=== PATIENT | female | born 1985 | race Caucasian/White ===

== ENCOUNTER 2016-09-18 19:34 | Emergency (ER) | payer OTHER ==
--- NOTE | 2016-09-18 20:48 | EDDOCDS ---
Physician Documentation [facility] Name: Shawna Wagner Age: 31 yrs Sex: Female : 1985 Arrival Date: 09/18/2016 Time: 19:34 Bed Triage 3 Private MD: Anjali [facility] Disposition: 09/18/16 20:30 Transfer ordered to Other. Diagnosis is Concussion - 28 wks ; fall; headache - transfer to L and D. - Reason for transfer: Higher level of care. - Accepting physician is dr palomino. - Condition is Stable. - Problem is new. - Symptoms are unchanged. Historical: - Allergies: no known allergies; - Home Meds: 1. 28 mg iron- 800 mcg Oral tab daily - PMHx: none; - PSHx: L elbow surgery; Tonsillectomy; Breast Reduction; ; - Social history: Smoking status: Patient states former smoker of tobacco. No barriers to communication noted, The patient speaks fluent Peruvian. - Family history: Not pertinent. - : The pt / caregiver states he / she is not on anticoagulants. Home medication list is obtained from the patient. - Exposure Risk Screening:: None identified. 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 4 in. (162.56 cm); 20:43 BP 111 / 55; Pulse 82; Resp 18; Temp 97.6(T); Pulse Ox 97% on R/A; Pain 0/10; ms18 19:36 Body Mass Index 29.18 (77.11 kg, 162.56 cm) elp MDM: 20:21 Heart Tones ordered. 20:42 Financial registration complete. [email or web address] 20:43 [facility] Payment Agreement was scanned into [employer] and attached to record. [email or web address] Signatures: Katya Gonzáles MD MD Shantel ConnollyRN RN rs3 Penelope Lombardo RN RN ms18 Irma Browning, Reg Reg [email or web address] The chart was reviewed and I authenticate all verbal orders and agree with the evaluation and treatment provided.Attachments: 20:43 [facility] Payment Agreement [email or web address] MTDD
--- NOTE | 2016-09-18 20:48 | EDDOCDS ---
Nurse's Notes [facility] Name: Shawna Wagner Age: 31 yrs Sex: Female : 1985 Arrival Date: 09/18/2016 Time: 19:34 Bed Triage 3 Private MD: Anjali [facility] Diagnosis: Concussion-28 wks ; fall; headache - transfer to L and D Presentation: 09/18 19:38 Presenting complaint: Patient states: fell and hit the back of the head. reports of rs3 headache, right eye feels fussy. Adult Sepsis Screening: The patient does not have new or worsening altered mentation. Patient's respiratory rate is less than 22. Systolic blood pressure is greater than 100. Patient has a qSOFA score of 0- Negative Sepsis Screen. Suicide/Homicide risk assessment- the patient denies having any suicidal and/or homicidal ideations and does not present with any other emotional, behavioral or mental health complaints. Status: The patient is a dependent. Transition of care: patient was not received from another setting of care. 19:38 Acuity: LUDIN Level 4 rs3 19:38 Method Of Arrival: Walkin/Carried/Asstd rs3 Triage Assessment: 19:40 General: Appears in no apparent distress. Pain: Location: forehead. HIV screening NA rs3 for this visit Offered previously. Musculoskeletal: Reports Pain is 5 out of 10 on a pain scale. 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 28 mg iron- 800 mcg Oral tab daily - PMHx: none; - PSHx: L elbow surgery; Tonsillectomy; Breast Reduction; ; - Social history: Smoking status: Patient states former smoker of tobacco. No barriers to communication noted, The patient speaks fluent Danish. - Family history: Not pertinent. - : The pt / caregiver states he / she is not on anticoagulants. Home medication list is obtained from the patient. - Exposure Risk Screening:: None identified. Screenin:29 Screening information is obtained from the patient. Fall risk: No risks identified. ms18 Assistance ADL's: requires no assistance with activities of daily living. Abuse/DV Screen: The patient / caregiver reports he/she is: not in a situation that causes fear, pain or injury. Nutritional screening: No deficits noted. Advance Directives: There is no living will. home support is adequate. Assessment: 20:29 General: Appears in no apparent distress, comfortable, Behavior is appropriate for age, ms18 cooperative, pleasant. General: Pt states that she has felt the baby move and FHT's were obtained and reported to the ED provider. Dr. Valero was called at this time. Pain: Denies pain. Neurological: Level of Consciousness is awake, alert, obeys commands, Oriented to person, place, time, Moves all extremities. Gait is steady, Speech is normal, Facial symmetry appears normal. Respiratory: No deficits noted. Derm: Skin is pink, warm & dry. Musculoskeletal: Range of motion intact in all extremities. 20:43 General: Pt in no acute distress. Dr. Mc asked to put the pt in as a discharge, Dr. anastacio Mc stated that she will leave the pt as a transfer. Report Manager notified of this. Pt leaving the ED now by WC to go to L&D. Vital Signs: 19:36 BP 137 / 59; Pulse 89; Resp 18; Temp 98.0; Pulse Ox 98% ; Weight 77.11 kg; Height 5 ft. elp 4 in. (162.56 cm); 20:43 BP 111 / 55; Pulse 82; Resp 18; Temp 97.6(T); Pulse Ox 97% on R/A; Pain 0/10; ms18 19:36 Body Mass Index 29.18 (77.11 kg, 162.56 cm) elp Vitals: 19:36 Log In Time: September 18, 2016 at 19:34. elp 20:28 Heart Tones 133BPM. ms18 ED Course: 19:35 Patient visited by Sandy Ballesteros PCA. elp 19:35 Patient moved to Waiting elp 19:36 DIANN Alba is Private Physician. elp 19:36 Patient visited by Sandy Ballesteros PCA. elp 19:36 Patient moved to Pre RCE elp 19:39 Triage Initiated rs3 19:56 Patient moved to Triage 3 ms18 20:15 Katya Gonzáles MD is Attending Physician. ml 20:15 Patient visited by Katya Gonzáles MD. ml 20:28 Patient visited by Penelope Lombardo,PAULA. ms18 20:29 The patient / caregiver is instructed regarding the plan of care and ED course. Patient ms18 has correct armband on for positive identification. Property sent home with patient. :Personal belongings accompany Pt. 20:29 No IV's were initiated during this patient's visit. No procedures done that require ms18 assistance. 20:43 [facility] Payment Agreement was scanned into [employer] and attached to record. [email or web address] Order Results: There are currently no results for this order. Outcome: 20:29 No special radiology studies were completed. ms18 20:30 ER care complete, transfer ordered by Provider. ml 20:42 Discharge Assessment: Patient awake, alert and oriented x 3. No cognitive and/or ms18 functional deficits noted. Patient verbalized understanding of disposition instructions. patient administered narcotics - no. The following High Risk Discharge criteria are identified: None. Discharged to Labor and Delivery. Condition: good Condition: stable. Discharge instructions given to patient, Instructed on discharge instructions, follow up and referral plans. Demonstrated understanding of instructions, Pt was receptive of discharge instructions/ teaching. Admission hand-off: Report called to L&D, spoke to Chiara. 20:46 Patient left the ED. ms18 Signatures: Katya Gonzáles MD MD Shantel Connolly,RN RN rs3 Sandy Ballesteros, SHOE CASER SHOE CASER elp Penelope Lombardo,PAULA RN ms18 NallelyIrma, Reg Reg ks16 MTDD
[2016-09-18] MEDS ORDERED: PRENTAB9 PO (22:40)
--- NOTE | 2016-09-20 21:47 | EDDOCDS ---
Physician Documentation [facility] Name: Shawna Wagner Age: 31 yrs Sex: Female : 1985 Arrival Date: 09/18/2016 Time: 19:34 Bed Triage 3 Private MD: DIANN Alba Disposition: 09/18/16 20:30 Transfer ordered to Other. Diagnosis is Concussion - 28 wks ; fall; headache - transfer to L and D. - Reason for transfer: Higher level of care. - Accepting physician is dr palomino. - Condition is Stable. - Problem is new. - Symptoms are unchanged. Historical: - Allergies: no known allergies; - Home Meds: 1. 28 mg iron- 800 mcg Oral tab daily - PMHx: none; - PSHx: L elbow surgery; Tonsillectomy; Breast Reduction; ; - Social history: Smoking status: Patient states former smoker of tobacco. No barriers to communication noted, The patient speaks fluent Singaporean. - Family history: Not pertinent. - : The pt / caregiver states he / she is not on anticoagulants. Home medication list is obtained from the patient. - Exposure Risk Screening:: None identified. 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 4 in. (162.56 cm); 20:43 BP 111 / 55; Pulse 82; Resp 18; Temp 97.6(T); Pulse Ox 97% on R/A; Pain 0/10; ms18 19:36 Body Mass Index 29.18 (77.11 kg, 162.56 cm) elp MDM: 20:21 Heart Tones ordered. 20:42 Financial registration complete. [facility] 20:43 [facility] Payment Agreement was scanned into [employer] and attached to record. 09/19 11:44 T-Sheet-- Draft Copy was scanned into [employer] and attached to record. gb Signatures: Katya Gonzáles MD MD ml Barnhardt, Gloria, Reg Reg Shantel WinnRN RN rs3 Penelope Lombardo RN RN ms18 Irma Browning, Reg Reg ks16 The chart was reviewed and I authenticate all verbal orders and agree with the evaluation and treatment provided.Attachments: 09/18 20:43 [facility] Payment Agreement [email or web address] 09/19 11:44 T-Sheet-- Draft Copy gb Chart Complete MTDD
--- NOTE | 2016-09-20 21:47 | EDDOCDS ---
Nurse's Notes [facility] Name: Shawna Wagner Age: 31 yrs Sex: Female : 1985 Arrival Date: 09/18/2016 Time: 19:34 Bed Triage 3 Private MD: Anjali [facility] Diagnosis: Concussion-28 wks ; fall; headache - transfer to L and D Presentation: 09/18 19:38 Presenting complaint: Patient states: fell and hit the back of the head. reports of rs3 headache, right eye feels fussy. Adult Sepsis Screening: The patient does not have new or worsening altered mentation. Patient's respiratory rate is less than 22. Systolic blood pressure is greater than 100. Patient has a qSOFA score of 0- Negative Sepsis Screen. Suicide/Homicide risk assessment- the patient denies having any suicidal and/or homicidal ideations and does not present with any other emotional, behavioral or mental health complaints. Status: The patient is a dependent. Transition of care: patient was not received from another setting of care. 19:38 Acuity: LUDIN Level 4 rs3 19:38 Method Of Arrival: Walkin/Carried/Asstd rs3 Triage Assessment: 19:40 General: Appears in no apparent distress. Pain: Location: forehead. HIV screening NA rs3 for this visit Offered previously. Musculoskeletal: Reports Pain is 5 out of 10 on a pain scale. 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 28 mg iron- 800 mcg Oral tab daily - PMHx: none; - PSHx: L elbow surgery; Tonsillectomy; Breast Reduction; ; - Social history: Smoking status: Patient states former smoker of tobacco. No barriers to communication noted, The patient speaks fluent Mohawk. - Family history: Not pertinent. - : The pt / caregiver states he / she is not on anticoagulants. Home medication list is obtained from the patient. - Exposure Risk Screening:: None identified. Screenin:29 Screening information is obtained from the patient. Fall risk: No risks identified. ms18 Assistance ADL's: requires no assistance with activities of daily living. Abuse/DV Screen: The patient / caregiver reports he/she is: not in a situation that causes fear, pain or injury. Nutritional screening: No deficits noted. Advance Directives: There is no living will. home support is adequate. Assessment: 20:29 General: Appears in no apparent distress, comfortable, Behavior is appropriate for age, ms18 cooperative, pleasant. General: Pt states that she has felt the baby move and FHT's were obtained and reported to the ED provider. Dr. Valero was called at this time. Pain: Denies pain. Neurological: Level of Consciousness is awake, alert, obeys commands, Oriented to person, place, time, Moves all extremities. Gait is steady, Speech is normal, Facial symmetry appears normal. Respiratory: No deficits noted. Derm: Skin is pink, warm & dry. Musculoskeletal: Range of motion intact in all extremities. 20:43 General: Pt in no acute distress. Dr. Mc asked to put the pt in as a discharge, Dr. anastacio Mc stated that she will leave the pt as a transfer. Putty Worker notified of this. Pt leaving the ED now by WC to go to L&D. Vital Signs: 19:36 BP 137 / 59; Pulse 89; Resp 18; Temp 98.0; Pulse Ox 98% ; Weight 77.11 kg; Height 5 ft. elp 4 in. (162.56 cm); 20:43 BP 111 / 55; Pulse 82; Resp 18; Temp 97.6(T); Pulse Ox 97% on R/A; Pain 0/10; ms18 19:36 Body Mass Index 29.18 (77.11 kg, 162.56 cm) elp Vitals: 19:36 Log In Time: September 18, 2016 at 19:34. elp 20:28 Heart Tones 133BPM. ms18 ED Course: 19:35 Patient visited by Sandy Ballesteros PCA. elp 19:35 Patient moved to Waiting elp 19:36 DIANN Alba is Private Physician. elp 19:36 Patient visited by Sandy Ballesteros PCA. elp 19:36 Patient moved to Pre RCE elp 19:39 Triage Initiated rs3 19:56 Patient moved to Triage 3 ms18 20:15 Katya Gonzáles MD is Attending Physician. ml 20:15 Patient visited by Katya Gonzáles MD. ml 20:28 Patient visited by Penelope Lombardo,PAULA. ms18 20:29 The patient / caregiver is instructed regarding the plan of care and ED course. Patient ms18 has correct armband on for positive identification. Property sent home with patient. :Personal belongings accompany Pt. 20:29 No IV's were initiated during this patient's visit. No procedures done that require ms18 assistance. 20:43 [facility] Payment Agreement was scanned into [employer] and attached to record. [email or web address] 22:09 Patient name changed from Shawna\S\\S\Kristy\S\ to Shawna\S\ \S\Kristy. EDMS 09/19 11:44 T-Sheet-- Draft Copy was scanned into [employer] and attached to record. gb Order Results: There are currently no results for this order. Outcome: 09/18 20:29 No special radiology studies were completed. ms18 20:30 ER care complete, transfer ordered by Provider. 20:42 Discharge Assessment: Patient awake, alert and oriented x 3. No cognitive and/or ms18 functional deficits noted. Patient verbalized understanding of disposition instructions. patient administered narcotics - no. The following High Risk Discharge criteria are identified: None. Discharged to Labor and Delivery. Condition: good Condition: stable. Discharge instructions given to patient, Instructed on discharge instructions, follow up and referral plans. Demonstrated understanding of instructions, Pt was receptive of discharge instructions/ teaching. Admission hand-off: Report called to L&D, spoke to Chiara. 20:46 Patient left the ED. ms18 Signatures: Dis[facility] EDLA Katya Gonzáles MD MD Alejandra Jones, Reg Reg gb Shantel Connolly,RN RN rs3 Sandy Ballesteros, PACKAGING MACHINE OPERATOR PACKAGING MACHINE OPERATOR elp Penelope Lombardo,RN RN ms18 Irma Browning, Reg Reg ks16 Chart Complete MTDD
--- NOTE | 2016-09-20 21:47 | EDDOCDS ---
Physician Documentation [facility] Name: Shawna Wagner Age: 31 yrs Sex: Female : 1985 Arrival Date: 09/18/2016 Time: 19:34 Bed Triage 3 Private MD: DIANN Alba Disposition: 09/18/16 20:30 Transfer ordered to Other. Diagnosis is Concussion - 28 wks ; fall; headache - transfer to L and D. - Reason for transfer: Higher level of care. - Accepting physician is dr palomino. - Condition is Stable. - Problem is new. - Symptoms are unchanged. Historical: - Allergies: no known allergies; - Home Meds: 1. 28 mg iron- 800 mcg Oral tab daily - PMHx: none; - PSHx: L elbow surgery; Tonsillectomy; Breast Reduction; ; - Social history: Smoking status: Patient states former smoker of tobacco. No barriers to communication noted, The patient speaks fluent Egyptian. - Family history: Not pertinent. - : The pt / caregiver states he / she is not on anticoagulants. Home medication list is obtained from the patient. - Exposure Risk Screening:: None identified. 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 4 in. (162.56 cm); 20:43 BP 111 / 55; Pulse 82; Resp 18; Temp 97.6(T); Pulse Ox 97% on R/A; Pain 0/10; ms18 19:36 Body Mass Index 29.18 (77.11 kg, 162.56 cm) elp MDM: 20:21 Heart Tones ordered. 20:42 Financial registration complete. [facility] 20:43 [facility] Payment Agreement was scanned into [employer] and attached to record. 09/19 11:44 T-Sheet-- Draft Copy was scanned into [employer] and attached to record. gb Signatures: Katya Gonzáles MD MD ml Barnhardt, Gloria, Reg Reg Shantel WinnRN RN rs3 Penelope Lombardo RN RN ms18 Irma Browning, Reg Reg ks16 The chart was reviewed and I authenticate all verbal orders and agree with the evaluation and treatment provided.Attachments: 09/18 20:43 [facility] Payment Agreement [email or web address] 09/19 11:44 T-Sheet-- Draft Copy gb Chart Complete MTDD
== END 2016-09-18 20:46 | disposition admitted as inpatient to this hospital (09) ==
LOC: M ED 19:34
DX: O9A.212 Injury, poisoning and certain other consequences of external causes complicating pregnancy, second trimester (principal); R51 Headache; W00.0XXA Fall on same level due to ice and snow, initial encounter; Y92.89 Other specified places as the place of occurrence of the external cause; Y93.89 Activity, other specified; Y99.8 Other external cause status; Z3A.28 28 weeks gestation of pregnancy

== ENCOUNTER 2016-09-18 20:55 | Outpatient (CLI) | payer OTHER ==
[~2016-09-18] VITALS: Ht 162.6 cm; Wt 78.0 kg
[2016-09-18 21:12] VITALS: BP 115/55
[2016-09-18] MEDS ORDERED: PRENTAB9 PO (22:40)
--- NOTE | 2016-09-19 00:48 | IPNPDOC ---
Text Note Date of Service The patient was seen on 09/19/16 at 00:39. NOTE Subjective: Shawna Wagner is a 31yo with a SIUP at approx. 28wk gestation who presents to triage s/p fall. She states she was walking her puppy outside to the mailbox and she fell backwards on ice and hit her head. She never hit her belly. She never lost consciousness. No bleeding of the head. She states she soon developed a headache and treated it with 650mg PO Tylenol. She was seen by the ER prior to coming up to L&D where they cleared her from a neurologic stand point. I spoke with the ER physician who said no head CT warranted, neurological exam normal, patient safe to be evaluated on L&D. ROS Admits: gross movement Denies: Vaginal bleeding/ loss of fluid, abdominal pain, bruising Objective: Vitals wnl NST: reassuring for gestational age [place]: no CTXs or uterine irritability Physical: Gen: well-developed and well-nourished in NAD. Mental: A&Ox3, conversant, not sleepy HEENT: palpation of the scalp reveals no lacerations or areas of induration, just slight tenderness in the center of the occiput Abdomen: Soft NT/ND without rebound or guarding Extremity: no edema in LE bilat. Assessment: Shawna Wagner is a 31yo with a SIUP at approx. 28wk gestation with no evidence of abruption. Reassuring NST without CTXs or uterine irritability. Vitals stable with benign physical exam. Cleared from neurologic standpoint by ER. Plan: -Tylenol 1000 mg q8hr for pain -has routine OB visit scheduled in 2 days, patient encouraged to keep appointment -Return precautions given for bleeding, fluid loss, contractions, decreased movement, and abdominal pain. Also, altered mental status, syncope, or anything else that concerns her Dr. MD Lebron Miramontes, OBGYN VS,Odalis, I+O VS, Odalis, I+O Vital Signs Date Time Temp Pulse Resp B/P Pulse Ox O2 Delivery O2 Flow Rate FiO2 09/18/16 21:12 97.8 77 18 115/55 SAL FARRELL MD Sep 19, 2016 00:48
== END 2016-09-18 21:46 | disposition home or self-care (01) ==
LOC: M LDO 20:55
PROVIDERS: ATTEND Obstetrics & Gynecology
DX: O26.893 Other specified pregnancy related conditions, third trimester (principal); R51 Headache; Z3A.28 28 weeks gestation of pregnancy

== ENCOUNTER 2016-11-25 03:56 | Inpatient (IN) | payer OTHER ==
[~2016-11-25] VITALS: Ht 162.6 cm; Wt 82.0 kg
[2016-11-25] VITALS (36 sets, daily range): BP systolic 95–147; BP diastolic 50–73
[~2016-11-25 03:56] MED LIST: PRENTAB9 PO
[2016-11-25] MEDS ORDERED: LACTATED RINGER'S 1000 ML IV STA (04:22)
[2016-11-25] MEDS ORDERED: FENTANYL 2MCG/ML ROPIVACAINE 0.2% IN 0.9% NACL 200ML IVBAG As Ordered ONE (04:36)
[2016-11-25] MEDS ORDERED: FENTANYL/ROPIVACAINE/NACL BAG 200 ML EPIDURAL SCH (04:38)
[2016-11-25] MEDS ORDERED: ePHEDrine SULFATE 25 MG/5 ML(5MG/ML) SYRINGE IV PRN (04:38)
[2016-11-25] MEDS ORDERED: NALOXONE INJ 0.4 MG/1 ML VIAL (J2310) IV PRN (04:38)
[2016-11-25] MEDS ORDERED: ONDANSETRON 4MG/2ML VIAL (J2405) IV PRN ×2 (04:38→21:30)
[2016-11-25] MEDS ORDERED: REFRIGERATOR IV KEYS XX PRN (04:38)
[2016-11-25] MEDS ORDERED: diphenhydrAMINE INJ 50MG/ML VIAL (J1200) IV PRN (04:38)
[2016-11-25] MEDS ORDERED: LACTATED RINGER'S 1000 ML IV PRN (04:38)
[2016-11-25] MEDS ORDERED: EPIDURAL COMMENT XX SCH (04:38)
[2016-11-25] MEDS ORDERED: EPIDURAL/PCA KEYS XX PRN (04:38)
[2016-11-25] MEDS ORDERED: OXYTOCIN 30 UNITS IN 0.9% NaCl 500ML IV BAG (J2590) As Ordered ONE (18:51)
[2016-11-25] MEDS: OXYTOCIN DRIP 30 UNITS in APPROPRIATE DILUENT 1 EA IV SCH (18:57)
[2016-11-25] MEDS ORDERED: RHOGAM 300 MCG (1500 IU) INJ (J2790) IM SCH (21:30)
[2016-11-25] MEDS ORDERED: ANUSOL HC CREAM 30GM TOP PRN (21:30)
[2016-11-25] MEDS ORDERED: DIBUCAINE 1% OINTMENT 30GM TOP PRN (21:30)
[2016-11-25] MEDS ORDERED: PROMETHAZINE 25 MG TAB PO PRN (21:30)
[2016-11-25] MEDS ORDERED: MEASLES,MUMPS,RUBELLA VACCINE INJ (MMR-II) (90707) SC SCH (21:30)
[2016-11-25] MEDS ORDERED: METHYLERGONOVINE MALEATE 0.2 MG TAB PO PRN (21:30)
[2016-11-25] MEDS ORDERED: DOCUSATE SODIUM 100 MG CAP PO PRN (21:30)
[2016-11-25] MEDS: ACETAMINOPHEN 500 MG TAB PO PRN (22:12)
[2016-11-25] MEDS ORDERED: MORPHINE 2 MG/ML 1ML SYRINGE IV ONE ×2 (22:45→23:15)
[2016-11-25] MEDS: IBUPROFEN 800 MG TAB PO PRN (23:00)
[2016-11-25] MEDS ORDERED: KETOROLAC 30 MG/ML VIAL (J1885) IV ONE (23:15)
[2016-11-25] MEDS: LIDOCAINE 2% JELLY 30 ML TOP SCH (23:31)
[2016-11-26] MEDS: LIDOCAINE 2% JELLY 30 ML TOP SCH (00:46)
[2016-11-26] MEDS: OXYTOCIN DRIP 30 UNITS in APPROPRIATE DILUENT 1 EA IV SCH (00:59)
[2016-11-26] MEDS: oxyCODONE 5MG TAB PO PRN ×2 (01:41→08:02)
[2016-11-26] MEDS: MORPHINE 2 MG/ML 1ML SYRINGE IV PRN ×2 (02:30→04:44)
[2016-11-26 03:30] VITALS: BP 105/49
[2016-11-26] MEDS: PRENATAL VITAMIN TAB PO SCH (09:00)
[2016-11-26] MEDS ORDERED: MIRALAX *UNIT DOSE* 17GM PACKET PO SCH (09:00)
[2016-11-26] MEDS: IBUPROFEN 800 MG TAB PO PRN (10:06)
[2016-11-26] MEDS: ACETAMINOPHEN 500 MG TAB PO PRN (12:19)
[2016-11-26] MEDS: PERCOCET 5MG/325MG TAB PO PRN (15:37)
[2016-11-26 18:12] VITALS: BP 107/53
[2016-11-26] MEDS: DOCUSATE SODIUM 100 MG CAP PO SCH (21:40)
[2016-11-27] MEDS: PERCOCET 5MG/325MG TAB PO PRN ×2 (04:42→18:31)
[2016-11-27 05:29] VITALS: BP 115/57
[2016-11-27] MEDS: DOCUSATE SODIUM 100 MG CAP PO SCH ×2 (08:04→20:05)
[2016-11-27] MEDS: PRENATAL VITAMIN TAB PO SCH (08:04)
[2016-11-27 18:00] VITALS: BP 121/62
[2016-11-27] MEDS: IBUPROFEN 800 MG TAB PO PRN (18:32)
[2016-11-28] MEDS: IBUPROFEN 800 MG TAB PO PRN (03:10)
[2016-11-28 05:33] VITALS: BP 110/55
[2016-11-28] MEDS: PRENATAL VITAMIN TAB PO SCH (09:12)
[2016-11-28] MEDS: DOCUSATE SODIUM 100 MG CAP PO SCH (09:12)
[2016-11-28] MEDS ORDERED: DIBU1OIN TOP (09:46)
[2016-11-28] MEDS ORDERED: ACET50TA PO (09:46)
[2016-11-28] MEDS ORDERED: IBUP-1114 PO (09:46)
== END 2016-11-28 11:45 | disposition home or self-care (01) | DRG 775 ==
LOC: M LDO 03:56 → M LDI 04:17 → M OBS 11-26 03:15
PROVIDERS: ADMIT Obstetrics & Gynecology; ATTEND Obstetrics & Gynecology
PROC: 10E0XZZ Delivery of Products of Conception, External Approach (ICD-10-PCS; principal; 2016-11-25)
PROC: 0KQM0ZZ Repair Perineum Muscle, Open Approach (ICD-10-PCS; 2016-11-25)
DX: O69.82X0 Labor and delivery complicated by other cord entanglement, without compression, not applicable or unspecified (principal); O71.7 Obstetric hematoma of pelvis; Z37.0 Single live birth; Z3A.39 39 weeks gestation of pregnancy; O70.1 Second degree perineal laceration during delivery

== ENCOUNTER 2016-12-02 14:39 | Inpatient (IN) | payer OTHER ==
[~2016-12-02] VITALS: Ht 162.6 cm; Wt 73.9 kg
[~2016-12-02 14:39] MED LIST changes: +ACET50TA PO; +DIBU1OIN TOP; +IBUP-1114 PO
[2016-12-02] MEDS ORDERED: ONDANSETRON 4MG/2ML VIAL (J2405) IV PRN ×2 (15:00→21:30)
[2016-12-02] MEDS ORDERED: MORPHINE 2 MG/ML 1ML SYRINGE IV PRN (15:00)
[2016-12-02] MEDS ORDERED: ACETAMINOPHEN 500 MG TAB PO PRN (15:00)
[2016-12-02] MEDS ORDERED: LR 500 ML IV SCH (15:00)
[2016-12-02 15:20] VITALS: BP 110/67
[2016-12-02] MEDS ORDERED: IRON65TA PO (15:32)
[2016-12-02] MEDS ORDERED: COLA100C3 PO (15:32)
[2016-12-02 15:39] LABS: BASO % 0.3 % (0.0-1.0); EOS # 0.4 K/mm3 (0.0-0.50); EOS % 3.6 % (0.0-3.0); LARGE UNSTAINED CELL # 0.3 K/mm3 (0.0-0.4); LARGE UNSTAINED CELL % 2.2 % (0.0-4.0); LYMPH # 2.1 K/mm3 (1.5-4.5); LYMPH % 17.1 % (24.0-44.0); MEAN CORPUSCULAR HEMOGLOBIN 31.3 pg (27.0-33.0); MEAN CORPUSCULAR HGB CONC 32.9 g/dl (32.0-36.5); MEAN CORPUSCULAR VOLUME 95.2 fl (80.0-96.0); MONO # 0.6 K/mm3 (0.0-0.8); MONO % 4.9 % (0.0-5.0); PLATELET COUNT, AUTOMATED 488 k/mm3 (150-450); RED CELL DISTRIBUTION WIDTH 14.1 % (11.5-14.5); WHITE BLOOD COUNT 12.4 K/mm3 (4.0-10.0)
[2016-12-02] MEDS ORDERED: MIDAZOLAM INJ 2 MG/2 ML VIAL (J2250) As Ordered ONE (19:08)
[2016-12-02] MEDS ORDERED: fentaNYL 100 MCG/2 ML INJECTION (J3010) As Ordered ONE (19:09)
[2016-12-02 19:40] VITALS: BP 115/58
[2016-12-02] MEDS ORDERED: PROPOFOL 200 MG/20 ML VIAL As Ordered ONE (20:06)
[2016-12-02] MEDS ORDERED: LIDOCAINE 2% INJ 100 MG/5 ML SDV (FOR ANES.) As Ordered ONE (20:06)
[2016-12-02] MEDS ORDERED: ONDANSETRON 4MG/2ML VIAL (J2405) As Ordered ONE (20:07)
[2016-12-02] MEDS ORDERED: ceFAZolin 2 GM/D5W 50 ML IV BAG (J0690) As Ordered ONE (20:14)
[2016-12-02] MEDS ORDERED: PHENYLephrine HCL 500 MCG/5 ML (100MCG/ML) SYRINGE (J2370) As Ordered ONE (20:31)
[2016-12-02] MEDS ORDERED: ePHEDrine SULFATE 25 MG/5 ML(5MG/ML) SYRINGE As Ordered ONE (20:34)
[2016-12-02] MEDS ORDERED: ESTROGENS VAGINAL CREAM 30GM As Ordered ONE (20:39)
[2016-12-02] MEDS ORDERED: PERCOCET 5MG/325MG TAB As Ordered ONE ×2 (21:22→21:47)
[2016-12-02] MEDS: PERCOCET 5MG/325MG TAB PO PRN ×2 (21:25→21:45)
[2016-12-02] MEDS ORDERED: HYDROmorphone HCL 1 MG/ML SYRINGE (J1170) IV PRN (21:30)
[2016-12-02] MEDS ORDERED: fentaNYL 100 MCG/2 ML INJECTION (J3010) IV PRN (21:30)
[2016-12-02] MEDS ORDERED: LR 1,000 ML IV SCH (21:45)
[2016-12-02 22:15] VITALS: BP 131/65
[2016-12-02 22:45] VITALS: BP 128/74
[2016-12-02 23:15] VITALS: BP 132/73
[2016-12-02] MEDS: LR 1,000 ML IV SCH (23:44)
[2016-12-02] MEDS: DOCUSATE SODIUM 100 MG CAP PO SCH (23:45)
[2016-12-02] MEDS: ACETAMINOPHEN 500 MG TAB PO SCH (23:46)
[2016-12-03] VITALS (8 sets, daily range): BP systolic 102–136; BP diastolic 57–81
[2016-12-03] MEDS: ACETAMINOPHEN 500 MG TAB PO SCH (06:31)
[2016-12-03] MEDS: LR 1,000 ML IV SCH ×2 (06:32→09:35)
[2016-12-03 06:54] LABS: BASO % 0.2 % (0.0-1.0); EOS # 0.4 K/mm3 (0.0-0.50); EOS % 3.3 % (0.0-3.0); LARGE UNSTAINED CELL # 0.2 K/mm3 (0.0-0.4); LARGE UNSTAINED CELL % 1.6 % (0.0-4.0); LYMPH # 1.7 K/mm3 (1.5-4.5); LYMPH % 13.4 % (24.0-44.0); MEAN CORPUSCULAR HEMOGLOBIN 31.1 pg (27.0-33.0); MEAN CORPUSCULAR HGB CONC 32.7 g/dl (32.0-36.5); MONO # 0.7 K/mm3 (0.0-0.8); MONO % 6.4 % (0.0-5.0); NEUTROPHILS # 8.6 K/mm3 (1.8-7.7); NEUTROPHILS % 75.1 % (36.0-66.0); PLATELET COUNT, AUTOMATED 425 k/mm3 (150-450); RED CELL DISTRIBUTION WIDTH 14.4 % (11.5-14.5); WHITE BLOOD COUNT 11.5 K/mm3 (4.0-10.0)
[2016-12-03] MEDS ORDERED: PERCOCET 5MG/325MG TAB PO PRN (08:15)
[2016-12-03] MEDS: DOCUSATE SODIUM 100 MG CAP PO SCH ×2 (08:35→20:32)
[2016-12-03] MEDS: MIRALAX *UNIT DOSE* 17GM PACKET PO SCH (08:35)
[2016-12-03] MEDS: IBUPROFEN 800 MG TAB PO SCH ×3 (08:36→23:16)
[2016-12-03 22:43] LABS: MEAN CORPUSCULAR HEMOGLOBIN 31.2 pg (27.0-33.0); MEAN CORPUSCULAR HGB CONC 32.9 g/dl (32.0-36.5); MEAN CORPUSCULAR VOLUME 94.8 fl (80.0-96.0); WHITE BLOOD COUNT 11.3 K/mm3 (4.0-10.0)
[2016-12-03] MEDS: AMPICILLIN SOD/SULBACTAM SOD 3 GM in D5W MINI-BAG PLUS 100 ML IV SCH (23:14)
[2016-12-03 23:24] LABS: INR 0.93
[2016-12-03] MEDS ORDERED: NS 1,000 ML IV SCH (23:45)
[2016-12-04] VITALS (12 sets, daily range): BP systolic 106–135; BP diastolic 55–75
[2016-12-04] MEDS: AMPICILLIN SOD/SULBACTAM SOD 3 GM in D5W MINI-BAG PLUS 100 ML IV SCH ×4 (04:32→22:48)
[2016-12-04] MEDS ORDERED: ACETAMINOPHEN 500 MG TAB PO SCH (06:00)
[2016-12-04 06:01] LABS: BASO % 0.3 % (0.0-1.0); EOS # 0.4 K/mm3 (0.0-0.50); EOS % 4.3 % (0.0-3.0); LARGE UNSTAINED CELL # 0.2 K/mm3 (0.0-0.4); LARGE UNSTAINED CELL % 2.3 % (0.0-4.0); LYMPH # 2.3 K/mm3 (1.5-4.5); MEAN CORPUSCULAR VOLUME 94.1 fl (80.0-96.0); MONO # 0.6 K/mm3 (0.0-0.8); MONO % 5.9 % (0.0-5.0); NEUTROPHILS # 6.4 K/mm3 (1.8-7.7); NEUTROPHILS % 66.2 % (36.0-66.0); PLATELET COUNT, AUTOMATED 446 k/mm3 (150-450); RED CELL DISTRIBUTION WIDTH 13.9 % (11.5-14.5); WHITE BLOOD COUNT 9.7 K/mm3 (4.0-10.0)
[2016-12-04] MEDS: IBUPROFEN 800 MG TAB PO SCH ×3 (06:15→21:49)
[2016-12-04] MEDS ORDERED: ceFAZolin 2 GM/D5W 50 ML IV BAG (J0690) As Ordered ONE (08:04)
[2016-12-04] MEDS ORDERED: dexameTHASONE 4 MG/ML 1ML VIAL (J1100) As Ordered ONE (08:12)
[2016-12-04] MEDS ORDERED: LIDOCAINE 2% INJ 100 MG/5 ML SDV (FOR ANES.) As Ordered ONE (08:14)
[2016-12-04] MEDS ORDERED: fentaNYL 100 MCG/2 ML INJECTION (J3010) As Ordered ONE (08:14)
[2016-12-04] MEDS ORDERED: MIDAZOLAM INJ 2 MG/2 ML VIAL (J2250) As Ordered ONE (08:14)
[2016-12-04] MEDS ORDERED: PROPOFOL 200 MG/20 ML VIAL As Ordered ONE (08:14)
[2016-12-04] MEDS ORDERED: ESTROGENS VAGINAL CREAM 30GM As Ordered ONE (08:29)
[2016-12-04] MEDS ORDERED: fentaNYL 100 MCG/2 ML INJECTION (J3010) IV PRN (09:45)
[2016-12-04] MEDS ORDERED: LR 1,000 ML IV SCH (09:45)
[2016-12-04] MEDS ORDERED: PERCOCET 5MG/325MG TAB PO PRN (09:45)
[2016-12-04] MEDS: MIRALAX *UNIT DOSE* 17GM PACKET PO SCH (13:41)
[2016-12-04] MEDS: DOCUSATE SODIUM 100 MG CAP PO SCH ×2 (13:43→21:49)
[2016-12-05] VITALS: BP 105/56
[2016-12-05 04:00] VITALS: BP 106/58
[2016-12-05] MEDS: AMPICILLIN SOD/SULBACTAM SOD 3 GM in D5W MINI-BAG PLUS 100 ML IV SCH (04:05)
[2016-12-05] MEDS: IBUPROFEN 800 MG TAB PO SCH ×3 (05:49→20:48)
[2016-12-05 07:48] LABS: BASO % 0.2 % (0.0-1.0); EOS # 0.4 K/mm3 (0.0-0.50); EOS % 3.4 % (0.0-3.0); LARGE UNSTAINED CELL # 0.4 K/mm3 (0.0-0.4); LYMPH # 3.1 K/mm3 (1.5-4.5); LYMPH % 26.5 % (24.0-44.0); MEAN CORPUSCULAR HGB CONC 31.8 g/dl (32.0-36.5); MEAN CORPUSCULAR VOLUME 94.6 fl (80.0-96.0); MONO # 0.6 K/mm3 (0.0-0.8); MONO % 5.1 % (0.0-5.0); NEUTROPHILS # 7.2 K/mm3 (1.8-7.7); NEUTROPHILS % 61.8 % (36.0-66.0); PLATELET COUNT, AUTOMATED 480 k/mm3 (150-450); RED CELL DISTRIBUTION WIDTH 13.7 % (11.5-14.5); WHITE BLOOD COUNT 11.6 K/mm3 (4.0-10.0)
[2016-12-05 08:00] VITALS: BP 122/64
--- NOTE | 2016-12-05 08:19 | RO ---
DATE OF PROCEDURE: 12/02/2016 PREPROCEDURE DIAGNOSIS: 1. Vulvar and vaginal hematoma. POSTPROCEDURE DIAGNOSES: 1. Vulvar and vaginal hematoma. 2. Necrotic tissue. PROCEDURE: 1. Exam under anesthesia. 2. Would exploration. 3. Debridement. 4. Vaginal packing. SURGEON: Lester Shipley MD PARI MUTUEL TICKET SELLER: Marva Vilchis MD ANESTHESIA: POT SANDER, General anesthesia. IV FLUIDS: 800 mL isotonic fluid. URINE OUTPUT: 200 mL Garcia catheter. ESTIMATED BLOOD LOSS: 50 mL. INDICATION FOR SURGERY: Patient was a 31-year-old 7 days now status post a successful with noted second degree laceration repaired in a routine fashion at time as well as noted vulvar and vaginal hematoma that appeared with no continued expansion of hematoma. Had received oral and IV pain medications while in house and was brought back for close interval followup this day. The determination was made after examination in clinic, to take to the OR for above procedure. The risks, benefits, indications, alternatives of the procedure were reviewed with the patient and informed consent was obtained. Patient was taken to the operating room where general anesthesia was obtained without difficulty. She was then placed in a high lithotomy position using gel padded Jose stirrups. Exam under anesthesia was performed and noted a large previously noted vaginal and vulvar hematoma with separation of the previous second degree repair. Patient was then prepped and draped in normal sterile fashion and Garcai catheter was placed. 2 grams of Ancef were provided prior to beginning of procedure. The second degree repair at the Vicryl stitch cut end was removed in its entirety. The wound was then cleared of all noted clots and debris. The vaginal hematoma was noted to extend into the left vaginal wall toward the perirectal space. Rectal tone and integrity of both external anal sphincter and rectal mucosa were noted/palpated intact. After gloves were exchanged, continued debridement and removal of clot with irrigation of approximately 250 mL of isotonic fluid with slight necrotic tissue noted. With a curette, gentle removal of all necrotic tissue in the entire extremity was noted. Blanching/ecchymosis/slight ischemic area noted to the left vaginal side wall. Good granulation/slight bleeding noted along edges of this space. Wound was then packed gently with Premarin coated packing. Packing was extended into the second degree laceration and the perineal body. Abdominal dressing was then placed over this. Garcia catheter was left in place. Noted hemostasis at the conclusion of this with no active bleeding. All instruments were removed from the vagina. Patient tolerated the procedure well. A gentle sweep was performed and noted no retained products other than vaginal packing. At the completion of the case, all counts were correct times two. Patient tolerated the procedure well and was taken to the postanesthesia care unit in stable condition. JACQUELINE
[2016-12-05] MEDS: MIRALAX *UNIT DOSE* 17GM PACKET PO SCH (08:40)
[2016-12-05] MEDS: DOCUSATE SODIUM 100 MG CAP PO SCH ×2 (08:40→20:48)
--- NOTE | 2016-12-05 11:00 | RO ---
DATE OF PROCEDURE: 12/04/2016 PREOPERATIVE DIAGNOSIS: Vulvar and Vaginal Hematoma POSTOPERATIVE DIAGNOSIS: RUTH PROCEDURE: 1) Exam under Anesthesia 2) Wound Exploration 3) Wound Packing SURGEON: Dr. Lester Shipley [employer] SALES MANAGER: Dr. Aleksey Lemon ANESTHESIA: TRANSCRIBER, General Anesthesia INDICATION FOR SURGERY: Patient is a 32-year-old, (G) 3, para (P) 3, now postoperative day two from previous exam under anesthesia/wound exploration/debridement/packing from a vulvovaginal hematoma noted on the left. Decision made to take her back again this morning for re-evaluation status post successful vaginal after section () on 11/25/2016. The risks, benefits, indications, and alternatives to the procedure were reviewed with the patient and informed consent was obtained. The patient was taken to the operating room where general anesthesia was obtained without difficulty. She was then placed in a high lithotomy position using gel padded Jose stirrups. An exam under anesthesia was performed with removal of the packing previously placed and noted increased healthy vaginal tissues along the left vaginal wall where previously it had been noted to be dark and dusky. Also noted some granulation tissue along that edge as well as the secondary laceration from time of delivery. In regards to specifics in space along the left sidewall, noted increased good appearing granulation tissue, some slight oozing of fresh bright red blood. Of note, one small area along the left edge of the laceration , approximately 2 mm in length, noted to be bleeding. That was closed with a #3-0 Vicryl without complication in routine fashion. Also appeared noted good granulation tissue and closure of some of the space from previous. No appreciable abscess noted. Premarin coated packing was then placed in the vaginal canal and along the area of the second degree laceration. An abdominal pad was then placed along the perineal body space. All instruments were noted to be removed with no remaining instruments in the patient's vagina other than previously stated. 2 grams of Ancef given prior to beginning of the case. The patient tolerated the procedure well. Sponge, needle and lap counts were correct x2. The patient was taken to the postanesthesia care unit (PACU) in stable condition. JACQUELINE
[2016-12-05 12:00] VITALS: BP 115/78
[2016-12-05 16:00] VITALS: BP 128/68
[2016-12-05 20:52] VITALS: BP 132/71
[2016-12-06 04:00] VITALS: BP 112/66
[2016-12-06] MEDS: IBUPROFEN 800 MG TAB PO SCH ×3 (05:10→21:58)
[2016-12-06 07:20] LABS: BASO % 0.4 % (0.0-1.0); EOS # 0.5 K/mm3 (0.0-0.50); EOS % 4.5 % (0.0-3.0); LARGE UNSTAINED CELL # 0.2 K/mm3 (0.0-0.4); LYMPH # 2.7 K/mm3 (1.5-4.5); LYMPH % 24.4 % (24.0-44.0); MEAN CORPUSCULAR HGB CONC 32.2 g/dl (32.0-36.5); MEAN CORPUSCULAR VOLUME 93.2 fl (80.0-96.0); MONO # 0.5 K/mm3 (0.0-0.8); MONO % 4.5 % (0.0-5.0); NEUTROPHILS # 6.5 K/mm3 (1.8-7.7); NEUTROPHILS % 64.2 % (36.0-66.0); PLATELET COUNT, AUTOMATED 527 k/mm3 (150-450); RED CELL DISTRIBUTION WIDTH 13.4 % (11.5-14.5); WHITE BLOOD COUNT 10.1 K/mm3 (4.0-10.0)
[2016-12-06 08:00] VITALS: BP 123/67
[2016-12-06] MEDS: MIRALAX *UNIT DOSE* 17GM PACKET PO SCH (08:38)
[2016-12-06] MEDS: DOCUSATE SODIUM 100 MG CAP PO SCH ×2 (08:38→21:58)
[2016-12-06] MEDS ORDERED: SLF 3 ML SYR IV PRN (12:15)
[2016-12-06] MEDS: SLF 3 ML SYR IV SCH ×2 (14:07→21:58)
[2016-12-06 16:00] VITALS: BP 119/57
[2016-12-06 20:00] VITALS: BP 117/68
[2016-12-07] VITALS (9 sets, daily range): BP systolic 112–135; BP diastolic 54–83
[2016-12-07 05:36] LABS: BASO % 0.3 % (0.0-1.0); EOS # 0.5 K/mm3 (0.0-0.50); EOS % 4.8 % (0.0-3.0); LARGE UNSTAINED CELL # 0.3 K/mm3 (0.0-0.4); LARGE UNSTAINED CELL % 2.5 % (0.0-4.0); LYMPH # 2.6 K/mm3 (1.5-4.5); LYMPH % 26.9 % (24.0-44.0); MEAN CORPUSCULAR HEMOGLOBIN 31.2 pg (27.0-33.0); MEAN CORPUSCULAR HGB CONC 33.6 g/dl (32.0-36.5); MEAN CORPUSCULAR VOLUME 92.8 fl (80.0-96.0); MONO # 0.4 K/mm3 (0.0-0.8); MONO % 3.7 % (0.0-5.0); NEUTROPHILS # 6.1 K/mm3 (1.8-7.7); NEUTROPHILS % 61.9 % (36.0-66.0); PLATELET COUNT, AUTOMATED 475 k/mm3 (150-450); RED CELL DISTRIBUTION WIDTH 13.3 % (11.5-14.5); WHITE BLOOD COUNT 9.8 K/mm3 (4.0-10.0)
[2016-12-07] MEDS: IBUPROFEN 800 MG TAB PO SCH ×3 (06:00→21:17)
[2016-12-07] MEDS: SLF 3 ML SYR IV SCH ×3 (06:00→22:08)
[2016-12-07] MEDS ORDERED: BUPIVACAINE/EPIN 0.25% 30 ML VIAL As Ordered ONE (07:15)
[2016-12-07] MEDS ORDERED: LIDOCAINE 2% INJ 100 MG/5 ML SDV (FOR ANES.) As Ordered ONE (07:19)
[2016-12-07] MEDS ORDERED: PROPOFOL 200 MG/20 ML VIAL As Ordered ONE (07:19)
[2016-12-07] MEDS ORDERED: fentaNYL 250 MCG/5 ML INJECTION (J3010) As Ordered ONE (07:19)
[2016-12-07] MEDS ORDERED: MIDAZOLAM INJ 2 MG/2 ML VIAL (J2250) As Ordered ONE (07:20)
[2016-12-07] MEDS ORDERED: ceFAZolin 2 GM/D5W 50 ML IV BAG (J0690) As Ordered ONE (07:32)
[2016-12-07] MEDS ORDERED: ONDANSETRON 4MG/2ML VIAL (J2405) As Ordered ONE (07:51)
[2016-12-07] MEDS ORDERED: dexameTHASONE 4 MG/ML 1ML VIAL (J1100) As Ordered ONE (07:51)
[2016-12-07] MEDS ORDERED: ESTROGENS VAGINAL CREAM 30GM As Ordered ONE (08:01)
[2016-12-07] MEDS ORDERED: PERCOCET 5MG/325MG TAB As Ordered ONE (08:48)
[2016-12-07] MEDS: PERCOCET 5MG/325MG TAB PO PRN ×2 (08:49→15:47)
[2016-12-07] MEDS ORDERED: fentaNYL 100 MCG/2 ML INJECTION (J3010) IV PRN (09:15)
[2016-12-07] MEDS ORDERED: MEPERIDINE INJ 25 MG/ML VIAL (J2175) IV PRN (09:15)
[2016-12-07] MEDS ORDERED: LR 1,000 ML IV SCH (09:15)
[2016-12-07] MEDS ORDERED: ONDANSETRON 4MG/2ML VIAL (J2405) IV PRN (09:15)
[2016-12-07] MEDS ORDERED: METOCLOPRAMIDE INJ 10MG/2ML VIAL (J2765) IV PRN (09:15)
[2016-12-07] MEDS ORDERED: PERCOCET 5MG/325MG TAB PO PRN (09:15)
--- NOTE | 2016-12-07 09:33 | RO ---
DATE OF PROCEDURE: PREPROCEDURE DIAGNOSIS: Vulvar vaginal hematoma. POSTPROCEDURE DIAGNOSIS: Vulvar vaginal hematoma. PROCEDURE: Closure of hematoma space and second degree lacerations. SURGEON: Dr. Lester Shipley MD FLYING SHEAR OPERATOR: Dr. Marva Vilchis MD ANESTHESIA: WASHER HAND, General Anesthesia COMPLICATIONS: None. INDICATION FOR SURGERY: The patient is a 31-year-old G3, P3 now status post a vaginal after section on 02/25/2016 with noted large vulvar vaginal hematoma as well as a second degree laceration. She has been previously taken back to the operating room times two with exam under anesthesia, debridement, packing, wound exploration. Previously packed with vaginal packing and noted good closure of hematoma, space on the left side. The patient was reviews of the risks, benefits, indications, alternatives for the procedure and informed consent was obtained. DESCRIPTION OF PROCEDURE: The patient taken to the operating room where general was given without difficulty. She was then prepped and draped in the high lithotomy position using Jose stirrups. The packing was removed. Ancef 2 grams was given prior to beginning the case. An exam under anesthesia was done which noted some healing of the second degree laceration as well as good vaginal mucosal tissue with no remaining necrotic tissue. The space behind the left vaginal wall noted good closure with healthy granulation tissue with no appreciable abscess; no necrotic tissue appreciated. All skin edges were noted to be healthy. Two [id number] sutures of 0 Vicryl were used to close up the remaining space from the hematoma on the left. The remainder of the second degree laceration and the remainder of the vaginal floor laceration were repaired with #2-0 Vicryl times two in a routine fashion without issues. No palpable defect continued to be noted afterwards. IV fluid was 800. Estimated blood loss: 25 Urine output: Voided prior to coming to the operating room. MTDD
[2016-12-07] MEDS: DOCUSATE SODIUM 100 MG CAP PO SCH ×2 (10:03→21:16)
[2016-12-07] MEDS: MIRALAX *UNIT DOSE* 17GM PACKET PO SCH (10:03)
[2016-12-08] VITALS: BP 113/59
[2016-12-08 04:00] VITALS: BP 136/74
[2016-12-08] MEDS: IBUPROFEN 800 MG TAB PO SCH (06:20)
[2016-12-08] MEDS: SLF 3 ML SYR IV SCH (06:20)
[2016-12-08 08:00] VITALS: BP 129/64
[2016-12-08] MEDS: DOCUSATE SODIUM 100 MG CAP PO SCH (08:54)
[2016-12-08] MEDS: MIRALAX *UNIT DOSE* 17GM PACKET PO SCH (08:54)
[2016-12-08 09:08] LABS: BASO % 0.2 % (0.0-1.0); EOS # 0.3 K/mm3 (0.0-0.50); EOS % 2.9 % (0.0-3.0); LARGE UNSTAINED CELL # 0.2 K/mm3 (0.0-0.4); LARGE UNSTAINED CELL % 2.1 % (0.0-4.0); LYMPH # 3.8 K/mm3 (1.5-4.5); LYMPH % 36.1 % (24.0-44.0); MEAN CORPUSCULAR HEMOGLOBIN 30.6 pg (27.0-33.0); MEAN CORPUSCULAR HGB CONC 32.8 g/dl (32.0-36.5); MEAN CORPUSCULAR VOLUME 93.2 fl (80.0-96.0); MONO # 0.4 K/mm3 (0.0-0.8); MONO % 3.7 % (0.0-5.0); NEUTROPHILS # 5.7 K/mm3 (1.8-7.7); PLATELET COUNT, AUTOMATED 511 k/mm3 (150-450); RED CELL DISTRIBUTION WIDTH 13.3 % (11.5-14.5); WHITE BLOOD COUNT 10.4 K/mm3 (4.0-10.0)
[2016-12-08] MEDS ORDERED: MIRA3350 PO (12:56)
== END 2016-12-08 13:15 | disposition home or self-care (01) | DRG 769 ==
LOC: M PED 15:02
PROVIDERS: ADMIT Student in an Organized Health Care Education/Training Program; ATTEND Student in an Organized Health Care Education/Training Program
PROC: 0UCG0ZZ Extirpation of Matter from Vagina, Open Approach (ICD-10-PCS; 2016-12-02)
PROC: 0KQM0ZZ Repair Perineum Muscle, Open Approach (ICD-10-PCS; 2016-12-02)
PROC: 0KQM0ZZ Repair Perineum Muscle, Open Approach (ICD-10-PCS; 2016-12-02)
PROC: 0UCM0ZZ Extirpation of Matter from Vulva, Open Approach (ICD-10-PCS; principal; 2016-12-02 20:05)
PROC: 0KQM0ZZ Repair Perineum Muscle, Open Approach (ICD-10-PCS; 2016-12-07)
PROC: 0UQM0ZZ Repair Vulva, Open Approach (ICD-10-PCS; 2016-12-07)
PROC: 0UQG0ZZ Repair Vagina, Open Approach (ICD-10-PCS; 2016-12-07)
DX: O72.2 Delayed and secondary postpartum hemorrhage (principal)